=== PATIENT | female | born 1990 | race Hispanic/Latino ===

== ENCOUNTER 2017-04-18 20:12 | Emergency (ER) | payer BC, OTHER ==
[2017-04-18 20:34] VITALS: TEMP 98.7; BMI 22.8
--- NOTE | 2017-04-18 21:06 | ED PDOC ---
Arrival/HPI <Kevan Delgado - Last Filed: 04/18/17 22:56> - General Historian: Patient - History of Present Illness Time/Duration: Prior to Arrival Symptom Course: Unchanged Context: Walking <ManpreetEmmaValeria - Last Filed: 04/18/17 23:14> - General Chief Complaint: Trauma Time Seen by Provider: 04/18/17 20:16 - History of Present Illness Narrative History of Present Illness (Text): 04/18/17 21:00 27 yo female with no significant PMH presents to Emergency department with neck pain after fall. Patient states that 2 days ago she fell down 3 stairs after tripping over her heels. Since the fall she has had neck pain, paravertebral greater on right then left. The pain is worse with any movement of her neck. She said that she tried taking ibuprofen to relieve the pain but it did not help. She state that today she had an episode of nonbloody vomiting and a few episodes of dizziness that lasted a few seconds. She denies fever, chills, changes in vision, focal weakness, changes in sensory and motor. PMD: (Valeria Case) Past Medical History - Provider Review Nursing Documentation Reviewed: Yes - Infectious Disease Hx of Infectious Diseases: None - Tetanus Immunization Tetanus Immunization: Unknown - Reproductive Menopause: No - Psychiatric Hx Substance Use: No - Surgical History Hx Appendectomy: Yes Other/Comment: Ovarian cyst removed. 1 1/2 years ago - Anesthesia Hx Anesthesia: Yes Hx Anesthesia Reactions: No <Valeria Case - Last Filed: 04/18/17 23:14> Family/Social History - Physician Review Nursing Documentation Reviewed: Yes Family/Social History: Neoplasm/Cancer (grandmother- lung ca) Smoking Status: Heavy Smoker > 10 Cigarettes Daily Hx Alcohol Use: Yes Hx Substance Use: No <Valeria Case - Last Filed: 04/18/17 23:14> Allergies/Home Meds <Kevan Delgado - Last Filed: 04/18/17 22:56> <Valeria Case - Last Filed: 04/18/17 23:14> Allergies/Adverse Reactions: Allergies No Known Allergies Allergy (Verified 12/16/16 12:07) Home Medications: Home Meds Medication Instructions Recorded Confirmed Multivit/Folic Acid/I 1 tab PO DAILY 08/06/16 12/16/16 [] Review of Systems - Review of Systems Constitutional: Normal. absent: Fatigue, Fevers Eyes: Normal. absent: Vision Changes ENT: Normal. absent: Sore Throat, Rhinorrhea, Sinus Congestion Respiratory: Normal. absent: SOB, Cough, Wheezing Cardiovascular: Normal. absent: Chest Pain, Palpitations, Edema, Calf Pain Gastrointestinal: Normal. absent: Abdominal Pain, Constipation, Diarrhea, Nausea, Vomiting Genitourinary Female: Normal. absent: Dysuria, Frequency, Hematuria Musculoskeletal: Neck Pain. absent: Back Pain Skin: Normal. absent: Rash, Laceration, Ulcer Neurological: Normal, Dizziness. absent: Headache, Focal Weakness, Speech Changes Endocrine: Normal Hemo/Lymphatic: Normal. absent: Easy Bleeding, Easy Bruising Psychiatric: Normal <Valeria Case - Last Filed: 04/18/17 23:14> Physical Exam - Systems Exam Head: Present: Atraumatic, Normocephalic Pupils: Present: PERRL. No: Sluggish, Non-Reactive, Pinpoint Extroacular Muscles: Present: EOMI. No: Gaze Palsy, Entrapment Conjunctiva: Present: Normal. No: Injected, Icteric Mouth: Present: Moist Mucous Membranes Pharnyx: Present: Normal. No: ERYTHEMA, EXUDATE Nose (External): Present: Atraumatic Neck: Present: Paraspinal Tenderness. No: Normal Range of Motion, Meningeal Signs Respiratory/Chest: Present: Clear to Auscultation, Good Air Exchange. No: Respiratory Distress, Accessory Muscle Use, Wheezes, Rales, Rhonchi, Tachypneic Cardiovascular: Present: Regular Rate and Rhythm, Normal S1, S2. No: Murmurs, Tachycardic, Bradycardic Abdomen: Present: Normal Bowel Sounds. No: Tenderness, Distention, Peritoneal Signs Back: Present: Normal Inspection. No: CVA Tenderness, Midline Tenderness, Paraspinal Tenderness Upper Extremity: Present: Normal Inspection. No: Cyanosis, Edema, Normal ROM, Tenderness Lower Extremity: Present: Normal Inspection. No: Edema, CALF TENDERNESS, Tenderness, Swelling Neurological: Present: GCS=15, CN II-XII Intact, Speech Normal, Motor Func Grossly Intact, Normal Sensory Function, Gait Normal Skin: Present: Warm, Dry, Normal Color. No: Rashes, Diaphoretic, Laceration Psychiatric: Present: Alert, Oriented x 3, Normal Insight, Normal Concentration <Valeria Case - Last Filed: 04/18/17 23:14> Vital Signs Temp Pulse Resp BP 04/18/17 20:27 98.7 F 87 18 151/98 H Medical Decision Making - RAD Interpretation Enterprise Application Developer: Radiologist <Kevan Delgado - Last Filed: 04/18/17 22:56> <Valeria Case - Last Filed: 04/18/17 23:14> ED Course and Treatment: Patient Seen With Resident: In agreement with resident note which contains more details about the patient. Patient was seen and evaluated with resident. Came up with plan and treatment together. A 27 year old female with neck pain after fall. Additional HPI as noted by resident. On physical exam, patient has paraspinal tenderness. Ordered CT cervical spine. Will give patient Tramadol. 04/18/17 22:55 CT Cervical Spine shows: Vertebrae: Straightening with slight reversal of cervical lordosis. No acute fracture. No subluxation. Discs/spinal canal/neural foramina: No acute findings. Soft tissues: Unremarkable. Lung apices: Unremarkable as visualized. IMPRESSION: No acute traumatic osseous injury. (Kevan Delgado) 04/18/17 21:09 Impression: 27 yo female with no significant PMH presents to Emergency departmet with neck pain post fall. Differential Diagnosis include but are not limited to: - fracture, muscle strain Plan: - CT cervical spine - tramadol -- Reassess and disposition Progress Notes: 04/18/17 22:58 - CT cervical spine showed No acute traumatic osseous injury. Patient continues to report pain, will give toradol. Patient is agreeable for discharge home. Will be discharged with soft cervical collar and prescriptions for pain control. She is to follow up with PMD in 1-2 days. (Valeria Case) - RAD Interpretation Radiology Orders: 04/18/17 20:57 CERVICAL SPINE W/O CONTRAST [CT] Stat - Medication Orders Current Medication Orders: Discontinued Medications Ketorolac Tromethamine (Toradol) 60 mg IM STAT STA Stop: 04/18/17 22:52 Last Admin: 04/18/17 23:03 Dose: 60 mg Tramadol HCl (Ultram) 50 mg PO STAT STA Stop: 04/18/17 21:12 Last Admin: 04/18/17 21:19 Dose: 50 mg - Scribe Statement The provider has reviewed the documentation as recorded by the Scribe <Kevan Delgado - Last Filed: 04/18/17 22:56> <Valeria Case - Last Filed: 04/18/17 23:14> - Scribe Statement Jorge Lopez Provider Scribe Attestation: All medical record entries made by the Scribe were at my direction and personally dictated by me. I have reviewed the chart and agree that the record accurately reflects my personal performance of the history, physical exam, medical decision making, and the department course for this patient. I have also personally directed, reviewed, and agree with the discharge instructions and disposition. (Kevan Delgado) Disposition/Present on Arrival <Kevan Delgado - Last Filed: 04/18/17 22:56> - Present on Arrival Any Indicators Present on Arrival: No History of DVT/PE: No History of Uncontrolled Diabetes: No Urinary Catheter: No History of Decub. Ulcer: No History Surgical Site Infection Following: None - Disposition Have Diagnosis and Disposition been Completed?: Yes Disposition Time: 23:00 Patient Plan: Discharge <ManpreetValeria - Last Filed: 04/18/17 23:14> - Disposition Diagnosis: Neck pain, musculoskeletal Disposition: HOME/ ROUTINE Patient Problems: Current Active Problems Problem Status Onset Neck pain, musculoskeletal Acute Condition: GOOD Discharge Instructions (ExitCare): Cervical Sprain (ED) Additional Instructions: Stella Markham, thank you for letting us take care of you today. Your provider was Dr. Case and Dr. Winchester. You were treated for neck pain. The emergency medical care you received today was directed at your acute symptoms. If you were prescribed any medication, please fill it and take as directed. It may take several days for your symptoms to resolve. Return to the Emergency Department if your symptoms worsen, do not improve, or if you have any other problems. Please contact your doctor or call one of the physicians/clinics you have been referred to that are listed on the Patient Visit Information form that is included in your discharge packet. Bring any paperwork you were given at discharge with you along with any medications you are taking to your follow up visit. Our treatment cannot replace ongoing medical care by a primary care provider (PCP) outside of the emergency department. Thank you for allowing the [facility] team to be part of your care today. If you had an X-Ray or CT scan: A Radiologist will review the ED reading if any change in treatment is needed we will contact you. Prescriptions: Cyclobenzaprine [Cyclobenzaprine HCl] 10 mg PO TID PRN #15 tab PRN Reason: Pain, Severe (8-10) Naproxen 500 mg PO BID PRN #10 tab PRN Reason: Pain, Moderate (4-7) Referrals: PCP,NO [Primary Care Provider] - Follow up with primary Thomas House MD [Staff Provider] - Follow up with primary
[2017-04-18 23:21] VITALS: BP 119/79; PULSE 89; RESP 16; O2SAT 100
--- NOTE | 2017-04-19 09:47 | CT ---
PROCEDURE: CT Cervical Spine without contrast HISTORY: Injury COMPARISON: None available. TECHNIQUE: Axial computed tomography images were obtained of the cervical spine without the use of intravenous contrast. Coronal and sagittal reformatted images were created and reviewed. Radiation dose: Total exam DLP = 404.65 mGy-cm. This CT exam was performed using one or more of the following dose reduction techniques: Automated exposure control, adjustment of the mA and/or kV according to patient size, and/or use of iterative reconstruction technique. FINDINGS: VERTEBRAE: There is normal alignment of the cervical vertebral bodies. There is mild reversal of normal cervical lordosis. Vertebral height is normal. There is no acute fracture or traumatic anterior listhesis. Craniocervical junction is normal. The atlantoaxial joint is normal DISCS/SPINAL CANAL/NEURAL FORAMINA: The disc heights are maintained. PARASPINAL SOFT TISSUES: There is no prevertebral soft tissue thickening. The paraspinous soft tissues are normal. OTHER FINDINGS: None. IMPRESSION: No acute fracture or traumatic anterolisthesis. A preliminary report was provided by [facility] [facility].
== END 2017-04-18 23:21 | disposition home or self-care (01) ==
LOC: ED 20:12
DX: M54.2 Cervicalgia (principal)
CPT/HCPCS: 72125; 96372; 99284; J1885